=== PATIENT | female | born 1950 | race Two or more races ===

== ENCOUNTER 2023-01-13 15:08 | Emergency (ER) | payer OTHER ==
--- OUTSIDE RECORDS SUMMARY | 2023-01-13 15:12 | XMS REPORT | Continuity of Care Document ---
:1950 [facility] t Address [address] [facility] [place] [address] Care Team Providers Name Role Phone Praneeth Downey V Attending Clinician Unavailable Praneeth Downey V Admitting Clinician Unavailable Payers Payer Name Policy Type Policy Number Effective Date Expiration Date S ource Problems This patient has no known problems. Allergies, Adverse Reactions, Alerts This patient has no known allergies or adverse reactions. Medications This patient has no known medications. Procedures This patient has no known procedures. Encounters Start End Encounter Admission Attending Care Care Encounter Source Date/Time Date/Time Type Type Clinicians Facility Department ID 2022-05-03 2022-05-03 Outpatient PURA Gonzalez [id number] [facility] 08:00:00 08:00:00 Praneeth [facility] Results This patient has no known results.
[2023-01-13 15:57] LABS: Absolute Lymphocytes (CBC) 2.1 K/uL (0.7-4.9); Hematocrit 42.7 % (36.0-45.0); MCV 89.3 fL (80-100); RBC Red Blood Cell Count 4.78 M/uL (3.86-4.86)
[2023-01-13 16:28] LABS: Potassium 3.5 mEq/L (3.5-5.1); Troponin High Sensitivity 3.8 pg/mL (<58.9)
--- NOTE | 2023-01-13 16:58 | RAD REPORT ---
EXAM DESCRIPTION: [facility] Single View01/13/2023 3:53 pm CLINICAL HISTORY: Chest pain;Dyspnea COMPARISON: No comparisons TECHNIQUE: Portable AP view of the chest. FINDINGS: The lungs are clear. No pneumothorax or effusion. The cardiomediastinal contours are unrem arkable. IMPRESSION: No acute cardiopulmonary process.
--- NOTE | 2023-01-13 17:34 | RAD REPORT ---
EXAM DESCRIPTION: CT - Chest For Pe Angio - 01/13/2023 4:51 pm CLINICAL HISTORY: DYSPNEA COMPARISON: No comparisons TECHNIQUE: Thin axial CT images of the chest were obtained following administration of 95 mL Isovue 370 IV contrast. Multiplanar reconstructions, and maximum intensity projection reconstructions were g enerated and reviewed. Exam utilizes a protocol for optimal evaluation of pulmonary arterial tree. All CT scans are performed using dose optimization technique as appropriate and may include automated exposure control or mA/KV adjustment according to patient size. FINDINGS: Pulmonary arteries are normal. No emboli or other suspicious finding. No acute or signific ant aorta findings. No mass or infiltrate in the lung parenchyma. No pleural thickening or pleural effusion. No pneumotho rax. No abnormal mediastinal or hilar masses or lymphadenopathy seen. No chest wall mass or abnormal axill iary lymphadenopathy. Left liver lobe subcapsular 11 mm lesion, may represent a small cyst. IMPRESSION: No evidence of acute central pulmonary emboli. Negative CT scan of the chest for other significant findings.
--- NOTE | 2023-01-13 18:24 | ER ---
Nurse's Notes [facility] Name: Alejandra Villalobos Age: 72 yrs Sex: Female : 1950 Arrival Date: 01/13/2023 Time: 15:13 Bed 2 Private MD: Praneeth Downey V Diagnosis: Dyspnea Presentation: 01/13 15:26 Chief complaint: Patient states: Chest tightness and SOB for 3 weeks. Had blood work ll1 with Dr. Downey. Called and told to come to ED for further eval, r/o blood clot. Coronavirus screen: Vaccine status: Patient reports receiving the 2nd dose of the covid vaccine. Client denies travel out of the [place] in the last 14 days. difficulty breathing, shortness of breath, Client presents with at least one sign or symptom that may indicate coronavirus-19. Standard/surgical mask placed on the client. Ebola Screen: Patient denies travel to an Ebola-affected area in the 21 days before illness onset. Initial Sepsis Screen: Does the patient meet any 2 criteria? No. Patient's initial sepsis screen is negative. Does the patient have a suspected source of infection? No. Patient's initial sepsis screen is negative. Risk Assessment: Do you want to hurt yourself or someone else? Patient reports no desire to harm self or others. Onset of symptoms was December 24, 2022. 15:26 Method Of Arrival: Ambulatory ll1 15:26 Acuity: SALAZAR 2 ll1 Historical: - Allergies: 15:27 No Known Allergies; ll1 - PMHx: 15:27 Osteoporosis; ll1 - PSHx: 15:27 tubal ligation; ll1 - Immunization history:: Client reports receiving the 2nd dose of the Covid vaccine. - Social history:: Smoking status: Patient denies any tobacco usage or history of. Screenin:[facility] ED Fall Risk Assessment (Adult) Score/Fall Risk Level 0 - 2 = Low Risk hb Oriented to surroundings, Maintained a safe environment, Educated pt \T\ family on fall prevention, incl call for assistance when getting out of bed. Abuse screen: Denies threats or abuse. Denies injuries from another. Nutritional screening: No deficits noted. Tuberculosis screening: No symptoms or risk factors identified. Assessment: 15:38 Reassessment: XRAY at bedside. ss 15:44 General: Appears in no apparent distress. Behavior is calm, cooperative. Pain: Denies hb pain. Neuro: Level of Consciousness is awake, alert, obeys commands, Oriented to person, place, time, situation. Cardiovascular: Patient's skin is warm and dry. Respiratory: Reports shortness of breath at rest on exertion Respiratory effort is even, unlabored, Respiratory pattern is regular, symmetrical. GI: No signs and/or symptoms were reported involving the gastrointestinal system. : No signs and/or symptoms were reported regarding the genitourinary system. EENT: No signs and/or symptoms were reported regarding the EENT system. Derm: Skin is pink, warm \T\ dry. Musculoskeletal: No signs and/or symptoms reported regarding the musculoskeletal system. 16:43 Reassessment: Patient appears in no apparent distress at this time. No changes from hb previously documented assessment. Patient and/or family updated on plan of care and expected duration. Pain level reassessed. Patient is alert, oriented x 3, equal unlabored respirations, skin warm/dry/pink. 17:46 Reassessment: Patient appears in no apparent distress at this time. Patient and/or hb family updated on plan of care and expected duration. Pain level reassessed. Patient is alert, oriented x 3, equal unlabored respirations, skin warm/dry/pink. 17:54 Reassessment: Patient appears in no apparent distress at this time. Patient and/or ss family updated on plan of care and expected duration. Pain level reassessed. all results back. Awaiting disposition. Vital Signs: 15:26 BP 144 / 61; Pulse 75; Resp 17; Temp 99; Pulse Ox 100% on R/A; Weight 60.33 kg; Height ll1 5 ft. 2 in. ; Pain 0/10; 15:44 BP 116 / 62; Pulse 72; Resp 17; Pulse Ox 100% on R/A; hb 16:43 BP 106 / 59; Pulse 72; Resp 18; Pulse Ox 98% ; hb 17:46 BP 119 / 59; Pulse 85; Resp 16; Pulse Ox 100% on R/A; hb 15:26 Body Mass Index 24.33 (60.33 kg, 157.48 cm) ll1 15:26 Pain Scale: Adult ll1 ED Course: 15:13 Patient arrived in ED. mr 15:13 Praneeth Downey MD is Private Physician. mr 15:13 Tania Melara F[facility]-C [facility]. kb 15:13 Sen Beyer MD is Attending Physician. kb 15:27 Triage completed. ll1 15:28 Arm band placed on Patient placed in an exam room, on a stretcher. ll1 15:29 Patient has correct armband on for positive identification. hb 15:38 Thalia Huffman, EVA is Primary Nurse. ss 15:38 Inserted saline lock: 20 gauge in right antecubital area, using aseptic technique. ss ,using aseptic technique. Insertion by EVA Ramos Blood collected. 15:55 XRAY Chest (1 view) In Process Unspecified. EDMS 16:53 CT Chest For PE Angio In Process Unspecified. EDMS 18:23 Praneeth Downey MD is Referral Physician. kb Administered Medications: No medications were administered Medication: 15:38 VIS not applicable for this client. ss Outcome: 18:23 Discharge ordered by . kb Signatures: Dispatcher [employer] EDMS Tania Melara FNP-C FNP-Shivani Tuyet White mr Thalia Huffman, RN RN Rachel Hoffman RN RN Danelle Herrera RN RN ll1 Corrections: (The following items were deleted from the chart) 17:48 17:46 BP 108 / 58; Pulse 85bpm; Resp 16bpm; Pulse Ox 100% RA; hb hb
--- NOTE | 2023-01-13 18:24 | EDPHYS ---
Physician Documentation [facility] Name: Alejandra Villalobos Age: 72 yrs Sex: Female : 1950 Arrival Date: 01/13/2023 Time: 15:13 Bed 2 Private MD: Praneeth Downey V ED Physician Sen Beyer HPI: 01/13 17:38 This 72 yrs old [place] Female presents to ER via Ambulatory with complaints of kb Possible blood clot. 17:38 The patient has shortness of breath at rest. Onset: The symptoms/episode began/occurred kb 3 week(s) ago. Duration: The symptoms are intermittent. The patient's shortness of breath has no apparent modifying factors. Associated signs and symptoms: Pertinent positives: chest pain. Severity of symptoms: At their worst the symptoms were mild moderate in the emergency department the symptoms have improved. The patient has not experienced similar symptoms in the past. The patient has not recently seen a physician. Patient reports chest tightness and shortness of breath intermittently for the last 3 weeks. Went to see Dr. Downey last week and was sent for blood work. Dr. Downey called patient today and told her to come to the ER to get a scan to rule out PE.. Historical: - Allergies: 15:27 No Known Allergies; ll1 - PMHx: 15:27 Osteoporosis; ll1 - PSHx: 15:27 tubal ligation; ll1 - Immunization history:: Client reports receiving the 2nd dose of the Covid vaccine. - Social history:: Smoking status: Patient denies any tobacco usage or history of. ROS: 17:34 Constitutional: Negative for fever, chills, and weight loss. kb 17:34 Cardiovascular: Positive for chest pain. 17:34 Respiratory: Positive for shortness of breath. 17:34 All other systems are negative. Exam: 15:39 Constitutional: This is a well developed, well nourished patient who is awake, alert, kb and in no acute distress. Head/Face: Normocephalic, atraumatic. ENT: Moist Mucous membranes Cardiovascular: Regular rate and rhythm with a normal S1 and S2. No gallops, murmurs, or rubs. No pulse deficits. Respiratory: Respirations even and unlabored. No increased work of breathing. Talking in full sentences Abdomen/GI: Soft, non-tender. No distention Skin: Warm, dry with normal turgor. Normal color. MS/ Extremity: Pulses equal, no cyanosis. Neurovascular intact. Full, normal range of motion. Neuro: Awake and alert, GCS 15, oriented to person, place, time, and situation. Moves all extremities. Normal gait. 15:39 ECG was reviewed by the Attending Physician. Vital Signs: 15:26 BP 144 / 61; Pulse 75; Resp 17; Temp 99; Pulse Ox 100% on R/A; Weight 60.33 kg; Height ll1 5 ft. 2 in. ; Pain 0/10; 15:44 BP 116 / 62; Pulse 72; Resp 17; Pulse Ox 100% on R/A; hb 16:43 BP 106 / 59; Pulse 72; Resp 18; Pulse Ox 98% ; hb 17:46 BP 119 / 59; Pulse 85; Resp 16; Pulse Ox 100% on R/A; hb 15:26 Body Mass Index 24.33 (60.33 kg, 157.48 cm) ll1 15:26 Pain Scale: Adult ll1 MDM: 15:17 Patient medically screened. kb 17:38 Data reviewed: vital signs, nurses notes. kb 17:39 Differential diagnosis: pneumonia, Pneumothorax pulmonary edema, Pulmonary Embolism. kb 18:23 Counseling: I had a detailed discussion with the patient and/or guardian regarding: the kb historical points, exam findings, and any diagnostic results supporting the discharge/admit diagnosis, lab results, radiology results, the need for outpatient follow up, a family practitioner, to return to the emergency department if symptoms worsen or persist or if there are any questions or concerns that arise at home. 01/13 15:23 Order name: EKG; Complete Time: 15:24 kb 01/13 15:23 Order name: Cardiac monitoring; Complete Time: 15:38 kb 01/13 15:23 Order name: EKG - Nurse/Tech; Complete Time: 15:38 kb 01/13 15:23 Order name: IV Saline Lock; Complete Time: 15:38 kb 01/13 15:23 Order name: Labs collected and sent; Complete Time: 15:38 kb 01/13 15:23 Order name: O2 Per Protocol; Complete Time: 15:38 kb 01/13 15:23 Order name: O2 Sat Monitoring; Complete Time: 15:38 kb 01/13 15:23 Order name: CBC with Diff; Complete Time: 16:09 kb 01/13 15:23 Order name: D-Dimer; Complete Time: 16:26 kb 01/13 15:23 Order name: Basic Metabolic Panel; Complete Time: 16:45 kb 01/13 15:23 Order name: NT PRO-BNP; Complete Time: 16:45 kb 01/13 15:23 Order name: Troponin HS; Complete Time: 16:45 kb 01/13 15:23 Order name: XRAY Chest (1 view); Complete Time: 17:08 kb 01/13 15:30 Order name: CT Chest For PE Angio; Complete Time: 17:39 kb EC:39 Rate is 72 beats/min. Rhythm is regular. QRS Rector is Normal. IL interval is normal at kb 146 msec. QRS interval is normal at 80 msec. QT interval is normal at 448 msec. Administered Medications: No medications were administered Disposition Summary: 01/13/23 18:23 Discharge Ordered Location: Home kb Condition: Stable kb Diagnosis - Dyspnea kb Followup: kb - With: Emergency Department - When: As needed - Reason: Worsening of condition Followup: kb - With: Praneeth Downey MD - When: 2 - 3 days - Reason: Recheck today's complaints, Continuance of care, Re-evaluation by your physician Discharge Instructions: - Discharge Summary Sheet kb - Shortness of Breath, Adult, [id number] kb Forms: - Medication Reconciliation Form kb - Thank You Letter kb - Antibiotic Education kb - Prescription Opioid Use kb Signatures: Dispatcher [employer] Tania Pichardo, LAILA SEARS-Danelle Owen, RN RN ll1
[2023-01-13 21:45] VITALS: TEMP 99
[2023-01-13 21:49] VITALS: BP 119/59; O2SAT 100
--- NOTE | 2023-01-14 17:36 | EKG ---
Test Date: 2023-01-13 Test Time: 15:34:31 User Experience Researcher: MISSY MEASUREMENT RESULTS: Intervals: Rate: 72 ND: 146 QRSD: 80 QT: 410 QTc: 448 [place]: P: 65 ND: 146 QRS: 33 T: 56 INTERPRETIVE STATEMENTS: Normal sinus rhythm Normal ECG No previous ECG available for comparison Electronically Signed On 01-14-23 17:35:01 CDT by Kamaljit Abrams
== END 2023-01-13 18:29 | disposition home or self-care (01) ==
LOC: ER 15:08
DX: R06.00 Dyspnea, unspecified (principal); R07.9 Chest pain, unspecified; M81.0 Age-related osteoporosis without current pathological fracture
CPT/HCPCS: 93005; 85025; 80048; 36415; 85379; 84484; 83880; 71275; 71045; 99284; Q9967